=== PATIENT | male | born 1995 | race American Indian/Alaskan Native ===

== ENCOUNTER 2021-11-28 07:26 | Emergency (ER) | payer OTHER ==
[2021-11-28] MEDS ORDERED: HYDROcodone/ACETAMINOPHEN 10-325MG TAB PO NR (11:34)
[2021-11-28] MEDS ORDERED: LIDOCAINE (2%) 20 MG/1 ML VIAL 20 ML MDV INFILTRATI NR (11:34)
--- NOTE | 2021-11-28 12:17 | XRay Report ---
Right foot 3 views INDICATION: Right foot pain after injury IMPRESSION: No radiopaque foreign body identified. Evidence of soft tissue edema/possible laceration along the lateral forefoot. Signer Name: Chava Noel MD Signed: 11/28/2021 12:13 PM Workstation Name: [id number]
--- NOTE | 2021-11-28 12:20 | XRay Report ---
Left humerus 2 views INDICATION: Left humeral pain following injury IMPRESSION: Prominent laceration of the upper arm. No obvious retained foreign body. Signer Name: Chava Noel MD Signed: 11/28/2021 12:16 PM Workstation Name: [email or web address]
--- NOTE | 2021-11-28 12:41 | Emergency Department Report ---
- General Chief Complaint: Wound/Laceration Stated Complaint: LEFT ARM RT FOOT LEFT EYE DEEP LACERATIONS Time Seen by Provider: 11/28/21 11:19 Source: patient Mode of arrival: Ambulatory Limitations: No Limitations - History of Present Illness Initial Comments: This is a 26-year-old male nontoxic, well nourished in appearance, no acute signs of distress presents to the ED with c/o of left upper arm laceartion, right foot laceration, and left eyebrow laceration that occurred this morning around 6 AM. Patient that he was walking his dog and tripped and caught himself on glass while stopping a fall. Patient denies decreased sensation or range of motion. Patient stated bleeding is under control. Denies any other complaints or symptoms. Denies any LOC. Denies any head injury or trauma. Denies any neck or back pain. Denies any numbness, tingling, fever, chills, nausea, vomiting, chest pain, shortness of breath, headache or stiff neck. Patient denies any allergies to significant past medical history. Patient is that he is not up-to-date with tetanus. -: This morning Location: face Extremity Location: Left: Arm, Right: Foot Place: outdoors Patient Tetanus UTD: No Context: accidental Associated Symptoms: pain. denies: loss of feeling/numbness, suspect foreign body present, unable to move injured part, weakness followed by dizziness, nausea/vomiting, fever - Related Data Previous Rx's Medication Instructions Recorded Last Taken Type Naproxen 500 mg PO Q12H PRN #12 tab 11/28/21 Unknown Rx Sulfamethoxazole/Trimethoprim 1 each PO BID #14 tab 11/28/21 Unknown Rx [Bactrim DS TAB] Allergies Allergy/AdvReac Type Severity Reaction Status Date / Time No Known Allergies Allergy Verified 11/28/21 12:01 ED Review of Systems ROS: Stated complaint: LEFT ARM RT FOOT LEFT EYE DEEP LACERATIONS Other details as noted in HPI Comment: All other systems reviewed and negative Constitutional: denies: chills, fever Eyes: denies: eye pain, eye discharge, vision change ENT: denies: ear pain, throat pain Respiratory: denies: cough, shortness of breath, wheezing Cardiovascular: denies: chest pain, palpitations Endocrine: no symptoms reported Gastrointestinal: denies: abdominal pain, nausea, diarrhea Genitourinary: denies: urgency, dysuria Musculoskeletal: denies: back pain, joint swelling, arthralgia Skin: denies: rash, lesions Neurological: denies: headache, weakness, paresthesias Psychiatric: denies: anxiety, depression Hematological/Lymphatic: denies: easy bleeding, easy bruising ED Past Medical Hx - Past Medical History Previous Medical History?: No - Surgical History Past Surgical History?: No - Social History Smoking Status: Current Every Day Smoker - Medications Home Medications: Home Medications Medication Instructions Recorded Confirmed Last Taken Type Naproxen 500 mg PO Q12H PRN #12 tab 11/28/21 Unknown Rx Sulfamethoxazole/Trimethoprim 1 each PO BID #14 tab 11/28/21 Unknown Rx [Bactrim DS TAB] ED Physical Exam - General Limitations: No Limitations General appearance: alert, in no apparent distress - Head Head exam: Present: atraumatic, normocephalic - Expanded Head Exam Expanded Head exam: Present: laceration 1 - 1 cm superficial laceration - Eye Eye exam: Present: normal appearance, PERRL, EOMI Pupils: Present: normal accommodation - Neck Neck exam: Present: normal inspection, full ROM. Absent: tenderness, meningismus, lymphadenopathy - Respiratory Respiratory exam: Absent: respiratory distress - Cardiovascular Cardiovascular Exam: Present: regular rate - Extremities Exam Extremities exam: Present: full ROM, tenderness, normal capillary refill. Absent: joint swelling - Expanded Upper Extremity Exam Left Shoulder Exam: Present: normal inspection, full ROM. Absent: tenderness, swe lling, abrasion, laceration, ecchymosis, deformity, crepidus, dislocation, erythema, tenderness over AC joint Upper Arm exam: Present: full ROM, tenderness, laceration (6 cm irregular laceration). Absent: swelling, abrasion, ecchymosis, deformity, crepidus, dislocation, erythema Elbow exam: Present: normal inspection, full ROM. Absent: tenderness, swelling Forearm Wrist exam: Present: normal inspection, full ROM. Absent: tenderness, swelling Hand Wrist exam: Present: normal inspection, full ROM. Absent: tenderness, swelling Vascular: Present: normal capillary refill. Absent: vascular compromise (Neurovascular within normal limits) - Expanded Lower Extremity Exam Right Hip exam: Present: normal inspection, full ROM. Absent: tenderness, swelling Upper Leg exam: Present: normal inspection, full ROM. Absent: tenderness, swelling Knee exam: Present: normal inspection, full ROM. Absent: tenderness, swelling Lower Leg exam: Present: normal inspection, full ROM. Absent: tenderness, swelling Ankle exam: Present: normal inspection, full ROM. Absent: tenderness, swelling, abrasion, laceration, ecchymosis, deformity, crepidus, dislocation, erythema, anterior draw sign Foot/Toe exam: Present: full ROM, tenderness, laceration (1 cm superifical lac). Absent: swelling, abrasion, ecchymosis, deformity, crepidus, dislocation, erythema, amputation, puncture wound, foreign body, calcaneal tenderness, tenderness at base of 5th metatarsal, nail avulsion, subungual hematoma Neuro vascular tendon exam: Present: no vascular compromise Gait: Positive: observed and limited by pain 1 - 1 cm superficial laceration with no foreign body noted - Back Exam Back exam: Present: normal inspection, full ROM. Absent: tenderness, CVA tenderness (R), CVA tenderness (L), muscle spasm, paraspinal tenderness, vertebral tenderness, rash noted - Neurological Exam Neurological exam: Present: alert, oriented X3 - Psychiatric Psychiatric exam: Present: normal affect, normal mood - Skin Skin exam: Present: warm, dry, intact, normal color. Absent: rash - Expanded Skin Exam Expanded 1 - lac present here ED Course Vital Signs 11/28/21 11/28/21 07:27 15:00 Temperature 98.6 F 97.6 F Pulse Rate 84 66 Respiratory 14 18 Rate Blood Pressure 103/60 Blood Pressure 128/86 [Right] O2 Sat by Pulse 100 100 Oximetry - Reevaluation(s) Reevaluation #1: 11/28/21 12:41 Patient is speaking in full sentences with no signs of distress noted. - Laceration /Wound Repair Left Arm Wound Location: face (Left eyebrow), upper extremity (Left arm), lower extremity (Right foot) Wound Length (cm): 6 Wound's Depth, Shape: flap Irrigated w/ Saline (ccs): 60 Betadine Prep?: Yes Volume Anesthetic (ccs): 6 (2% articaine plain) Wound Repaired With: sutures Suture Size/Type: 4:0, nylon Number of Sutures: 11 Layer Closure?: Yes Deep Layer Suture Size/Type: 4:0 (Vicryl) Number Deep Layer Sutures: 3 Sterile Dressing Applied?: Yes Progress: Left arm procedure: Under sterile field, I used Betadine to clean the area. I then used 60 mL of normal saline to flush the area. I then used 2% lidocaine plain and injected 6 mL to the wound. I then used 4-0 Vicryl for the deep dermis with total of 3 stitches placed. I then used a 4-0 nylon to suture the laceration. Number of stitches 11. I then applied a sterile 4 x 4 with tape. Minimal bleeding noted but is under control. Patient tolerated procedure well with no signs of distress. left eyebrow and right foot procedure: Under sterile field, I used Betadine to clean the area. I then used 40 mL of normal saline to flush the area. I then used Dermabond to approximate the laceration. I then applied a sterile 4 x 4 with tape. Minimal bleeding noted but is under control. Patient tolerated procedure well with no signs of distress. ED Medical Decision Making - Radiology Data [facility] [address] [place] [address] XRay Report Signed Patient: AVIVA JORGE MR#: [id number] 7 : 1995 Acct:[id number] Age/Sex: 26 / M ADM Date: 11/28/21 Loc: ED Attending Dr: Ordering Physician: MADELIN DURAN NP Date of Service: 11/28/21 Procedure(s): XR humerus 2+V LT Accession Number(s): [id number] cc: MADELIN DURAN NP Fluoro Time In Minutes: Left humerus 2 views INDICATION: Left humeral pain following injury IMPRESSION: Prominent laceration of the upper arm. No obvious retained foreign body. Signer Name: Chava Noel MD Signed: 11/28/2021 12:16 PM Workstation Name: [id number] Transcribed By: MINA Dictated By: Chava Noel MD Electronically Authenticated By: Chava Noel MD Signed Date/Time: 11/28/211215 DD/ 15 TD/TT: [facility] [address] [place] [address] XRay Report Signed Patient: AVIVA JORGE MR#: [id number] 7 : 1995 Acct:[id number] Age/Sex: 26 / M ADM Date: 11/28/21 Loc: ED Attending Dr: Ordering Physician: MADELIN DURAN NP Date of Service: 11/28/21 Procedure(s): XR foot 3+V RT Accession Number(s): [id number] cc: MADELIN DURAN NP Fluoro Time In Minutes: Right foot 3 views INDICATION: Right foot pain after injury IMPRESSION: No radiopaque foreign body identified. Evidence of soft tissue edema/possible laceration along the lateral forefoot. Signer Name: Chava Noel MD Signed: 11/28/2021 12:13 PM Workstation Name: [id number] Transcribed By: MINA Dictated By: Chava Noel MD Electronically Authenticated By: Chava Noel MD Signed Date/Time: 11/28/211212 DD/ 12 TD/TT: - Medical Decision Making This is a 26-year-old male that presents with laceration. Patient is stable and was examined by me. The laceration suturing has been performed and has been performed and patient tolerated well. A sterile dressing has been applied. Patient was educated on proper wound care. Patient is discharged with Bactrim. Patient was instructed to return in 10 days for suture removal. Patient was instructed to refer to Follow-up with a primary care doctor in 3-5 days or if symptoms worsen and continue return to emergency room as soon as possible. At time of discharge, the patient does not seem toxic or ill in appearance. No acute signs of distress noted. Patient agrees to discharge treatment plan of care. No further questions noted by the patient. Critical care attestation.: If time is entered above; I have spent that time in minutes in the direct care of this critically ill patient, excluding procedure time. ED Disposition Clinical Impression: Laceration of left upper arm Qualifiers: Encounter type: initial encounter Qualified Code(s): S41.112A - Laceration without foreign body of left upper arm, initial encounter Laceration of right foot Qualifiers: Encounter type: initial encounter Qualified Code(s): S91.311A - Laceration without foreign body, right foot, initial encounter Laceration of left eyebrow Qualifiers: Encounter type: initial encounter Qualified Code(s): S01.112A - Laceration without foreign body of left eyelid and periocular area, initial encounter Disposition: HOME / SELF CARE / HOMELESS Is pt being admited?: No Does the pt Need Aspirin: No Condition: Stable Instructions: Laceration Care, Adult Additional Instructions: Follow-up with a primary care doctor in 3-5 days or if symptoms worsen and continue return to emergency room as soon as possible. Return in 10 days for suture removal. Prescriptions: Sulfamethoxazole/Trimethoprim [Bactrim DS TAB] 1 each PO BID #14 tab Naproxen 500 mg PO Q12H PRN #12 tab PRN Reason: Pain , Severe (7-10) Referrals: PRIMARY CAREMD [Primary Care Provider] - 3-5 Days ANDRIA MARINA MD [Staff Physician] - 3-5 Days Time of Disposition: 14:07
[2021-11-28] MEDS ORDERED: TETANUS,DIPH,PERTUSS(ACELL) VACCINE 0.5 ML SYRINGE IM ONE (13:00)
[2021-11-28 15:35] VITALS: BP 128/86
== END 2021-11-28 15:34 | disposition home or self-care (01) ==
LOC: ED 07:26
DX: S41.112A Laceration without foreign body of left upper arm, initial encounter (principal); S01.112A Laceration without foreign body of left eyelid and periocular area, initial encounter; S91.311A Laceration without foreign body, right foot, initial encounter; W18.49XA Other slipping, tripping and stumbling without falling, initial encounter; Y93.89 Activity, other specified; Y92.89 Other specified places as the place of occurrence of the external cause; Y99.8 Other external cause status
CPT/HCPCS: 12042; 73060; 73630; 90471; 90715; 99283; J3490